=== PATIENT | male | born 1935 | race Caucasian/White ===

== ENCOUNTER → 2016-12-14 | Day surgery (SDC) | payer MEDICARE, OTHER ==
[~2016-12-14] MED LIST: ALDACTONE 25MG25 MG PO; COLCHICINE0.6 M1 PO; COUMADIN 1MG TAB1 MG PO; DULCOLAX5 MG PO; ENULOSE10 GM/15 M PO; FINASTERIDE5 MG PO; FLOMAX 0.4 MG0.4 MG PO; FUROSEMIDE20 MG PO; HYDROXYZINE HCL25 MG PO; ISOSORBIDE MONO30 MG PO; LISINOPRIL5 MG PO; METHOCARBAMOL500 MG PO; METHOCARBAMOL750 MG PO; NEURONTIN 300300 MG PO; NORCO 10-325 T1 EACH PO; PROCEL1 EACH PO; SIMVASTATIN20 MG PO; TYLENOL 500 MG500 MG PO; ZYLOPRIM 100 M100 MG PO; ZYRTEC10 M3 PO
== END | disposition home or self-care (01) ==
LOC: OR 07:03
PROVIDERS: Internal Medicine Gastroenterology
PROC: 0DBL8ZX Excision of Transverse Colon, Via Natural or Artificial Opening Endoscopic, Diagnostic (ICD-10-PCS; 2016-12-14)
PROC: 0DBP8ZZ Excision of Rectum, Via Natural or Artificial Opening Endoscopic (ICD-10-PCS; 2016-12-14)
PROC: 0DBK8ZX Excision of Ascending Colon, Via Natural or Artificial Opening Endoscopic, Diagnostic (ICD-10-PCS; principal; 2016-12-14 13:00)
DX: Z12.11 Encounter for screening for malignant neoplasm of colon (principal); C18.2 Malignant neoplasm of ascending colon; C18.3 Malignant neoplasm of hepatic flexure; D12.8 Benign neoplasm of rectum; K57.30 Diverticulosis of large intestine without perforation or abscess without bleeding; K64.0 First degree hemorrhoids; I11.0 Hypertensive heart disease with heart failure; I50.9 Heart failure, unspecified; I73.9 Peripheral vascular disease, unspecified; J43.9 Emphysema, unspecified; G47.30 Sleep apnea, unspecified; N40.0 Benign prostatic hyperplasia without lower urinary tract symptoms; F41.9 Anxiety disorder, unspecified; Z86.73 Personal history of transient ischemic attack (TIA), and cerebral infarction without residual deficits; Z87.891 Personal history of nicotine dependence; Z82.49 Family history of ischemic heart disease and other diseases of the circulatory system; Z83.3 Family history of diabetes mellitus; Z79.01 Long term (current) use of anticoagulants; Z79.899 Other long term (current) drug therapy; Z90.89 Acquired absence of other organs; Z98.890 Other specified postprocedural states
CPT/HCPCS: 82962; J7030

== ENCOUNTER 2017-01-04 11:32 | Emergency (ER) | payer MEDICARE, OTHER ==
[~2017-01-04 11:32] MED LIST changes: -COLCHICINE0.6 M1 PO; -ENULOSE10 GM/15 M PO; -HYDROXYZINE HCL25 MG PO; -METHOCARBAMOL500 MG PO; -NORCO 10-325 T1 EACH PO; -PROCEL1 EACH PO; -TYLENOL 500 MG500 MG PO; -ZYRTEC10 M3 PO
[2017-02-07] MEDS ORDERED: ISOSORBIDE MONO30 MG PO (09:27)
[2017-03-27] MEDS ORDERED: NORCO 10-325 T1 EACH PO (00:40)
[2017-03-27] MEDS ORDERED: TYLENOL 500 MG500 MG PO (00:42)
[2017-03-27] MEDS ORDERED: PROCEL1 EACH PO (00:44)
[2017-03-27] MEDS ORDERED: ENULOSE10 GM/15 M PO (00:45)
== END 2017-01-04 19:14 | disposition home or self-care (01) ==
LOC: ER1 11:32
DX: S70.02XA Contusion of left hip, initial encounter (principal); W01.0XXA Fall on same level from slipping, tripping and stumbling without subsequent striking against object, initial encounter; Y92.009 Unspecified place in unspecified non-institutional (private) residence as the place of occurrence of the external cause
CPT/HCPCS: 73502; 73564; 73700; 99284

== ENCOUNTER → 2017-02-02 | Outpatient (CLI) | payer MEDICARE, OTHER ==
[~2017-02-02] MED LIST changes: +COLCHICINE0.6 M1 PO; +ENULOSE10 GM/15 M PO; +HYDROXYZINE HCL25 MG PO; +METHOCARBAMOL500 MG PO; +NORCO 10-325 T1 EACH PO; +PROCEL1 EACH PO; +TYLENOL 500 MG500 MG PO; +ZYRTEC10 M3 PO
[2017-02-02 11:28] LABS: HEMOGLOBIN 15.2 gm/dl (14.0-17.5); RED BLOOD COUNT 4.91 M/UL (4.20-5.50)
== END ==
LOC: OPSV2 09:46
PROVIDERS: Anesthesiology
DX: Z01.818 Encounter for other preprocedural examination (principal); Z01.812 Encounter for preprocedural laboratory examination; C18.9 Malignant neoplasm of colon, unspecified; I10 Essential (primary) hypertension; E11.9 Type 2 diabetes mellitus without complications; I25.10 Atherosclerotic heart disease of native coronary artery without angina pectoris; Z95.0 Presence of cardiac pacemaker; Z79.02 Long term (current) use of antithrombotics/antiplatelets
CPT/HCPCS: 36415; 71020; 80048; 85025

== ENCOUNTER 2017-02-08 06:04 | Inpatient (IN) | payer MEDICARE, OTHER ==
[~2017-02-08] VITALS: Ht 182.9 cm; Wt 102.5 kg
[~2017-02-08 06:04] MED LIST changes: -COLCHICINE0.6 M1 PO; -ENULOSE10 GM/15 M PO; -HYDROXYZINE HCL25 MG PO; -METHOCARBAMOL500 MG PO; -NORCO 10-325 T1 EACH PO; -PROCEL1 EACH PO; -TYLENOL 500 MG500 MG PO; -ZYRTEC10 M3 PO
[2017-02-08] MEDS ORDERED: ZYRTEC10 M3 PO (07:32)
[2017-02-09 00:30] LABS: RED BLOOD COUNT 4.6 M/UL (4.20-5.50); WHITE BLOOD COUNT 12.9 K/UL (4.5-11.0)
[2017-02-09 07:02] LABS: HEMOGLOBIN 13.4 gm/dl (14.0-17.5); RED BLOOD COUNT 4.45 M/UL (4.20-5.50); WHITE BLOOD COUNT 11.3 K/UL (4.5-11.0)
[2017-02-10 03:15] LABS: HEMOGLOBIN 12.6 gm/dl (14.0-17.5); RED BLOOD COUNT 4.17 M/UL (4.20-5.50); WHITE BLOOD COUNT 9.3 K/UL (4.5-11.0)
--- NOTE | 2017-02-10 17:00 | NUR ---
Dr. Schultz here, removed Qpain sheath, empty. Redressed KAITY drain dressing. advanced to [facility]. Will start bladder training.
[2017-02-12 05:35] LABS: HEMOGLOBIN 12.6 gm/dl (14.0-17.5); RED BLOOD COUNT 4.23 M/UL (4.20-5.50); WHITE BLOOD COUNT 2.6 K/UL (4.5-11.0)
[2017-02-15 06:05] LABS: HEMOGLOBIN 12.5 gm/dl (14.0-17.5); RED BLOOD COUNT 4.21 M/UL (4.20-5.50)
[2017-03-27] MEDS ORDERED: NORCO 10-325 T1 EACH PO (00:40)
[2017-03-27] MEDS ORDERED: TYLENOL 500 MG500 MG PO (00:42)
[2017-03-27] MEDS ORDERED: PROCEL1 EACH PO (00:44)
[2017-03-27] MEDS ORDERED: ENULOSE10 GM/15 M PO (00:45)
== END 2017-02-16 15:35 | disposition other institution (70) | DRG 330 ==
LOC: ZOBSOF 06:04 → PROG CARE 06:04 → ZOBSOF 06:13 → OR 07:30 → EDSTATUS 07:30 → OR 07:45 → M/S 09:30 → PROG CARE 18:24 → M/S 02-13 14:31
PROVIDERS: Internal Medicine; Physician Assistant; ADMIT Surgery
PROC: 0WH Anatomical Regions, General, Insertion (ICD-10-PCS; principal; 2017-02-08 10:40)
PROC: 0DTF0ZZ Resection of Right Large Intestine, Open Approach (ICD-10-PCS; principal; 2017-02-08 10:40)
PROC: 0DJD4ZZ Inspection of Lower Intestinal Tract, Percutaneous Endoscopic Approach (ICD-10-PCS; principal; 2017-02-08 10:40)
DX: C18.2 Malignant neoplasm of ascending colon (principal); C18.3 Malignant neoplasm of hepatic flexure; I13.0 Hypertensive heart and chronic kidney disease with heart failure and stage 1 through stage 4 chronic kidney disease, or unspecified chronic kidney disease; I50.30 Unspecified diastolic (congestive) heart failure; Z53.31 Laparoscopic surgical procedure converted to open procedure; J44.9 Chronic obstructive pulmonary disease, unspecified; Z87.891 Personal history of nicotine dependence; N18.3 Chronic kidney disease, stage 3 (moderate); I48.0 Paroxysmal atrial fibrillation; Z79.01 Long term (current) use of anticoagulants; Z95.0 Presence of cardiac pacemaker; E78.5 Hyperlipidemia, unspecified; N40.0 Benign prostatic hyperplasia without lower urinary tract symptoms; D69.6 Thrombocytopenia, unspecified
CPT/HCPCS: 36415; 71010; 80048; 82962; 85025; 85027; 85610; 85730; 86850; 86900; 86901; 88341; 88342; 93005; 94640; 94664; 97110; 97530; C1751; J0694; J1200; J1644; J2250; J2270; J2405; J2710; J2795; J3010; J7030; J7040; J7050; J7120

== ENCOUNTER → 2017-03-18 | Outpatient (CLI) | payer MEDICARE, OTHER ==
[~2017-03-18] MED LIST changes: +COLCHICINE0.6 M1 PO; +ENULOSE10 GM/15 M PO; +HYDROXYZINE HCL25 MG PO; +METHOCARBAMOL500 MG PO; +NORCO 10-325 T1 EACH PO; +PROCEL1 EACH PO; +TYLENOL 500 MG500 MG PO; +ZYRTEC10 M3 PO
== END ==
LOC: CT 03-09 10:30 → LAB 09:33 → CT 09:33
DX: C18.2 Malignant neoplasm of ascending colon (principal); R59.0 Localized enlarged lymph nodes; N28.1 Cyst of kidney, acquired; M47.896 Other spondylosis, lumbar region; I70.0 Atherosclerosis of aorta

== ENCOUNTER 2017-06-15 11:32 | Inpatient (IN) | payer MEDICARE, OTHER ==
[~2017-06-15] VITALS: Ht 188 cm; Wt 99.8 kg
[~2017-06-15 11:32] MED LIST changes: -COLCHICINE0.6 M1 PO; -HYDROXYZINE HCL25 MG PO; -METHOCARBAMOL500 MG PO
[2017-06-15 13:46] LABS: HEMOGLOBIN 15.2 gm/dl (14.0-17.5)
[2017-06-15 13:51] LABS: RED BLOOD COUNT 5.26 M/UL (4.20-5.50); WHITE BLOOD COUNT 8.6 K/UL (4.5-11.0)
[2017-06-15] MEDS ORDERED: HYDROXYZINE HCL25 MG PO (20:18)
[2017-06-15] MEDS ORDERED: METHOCARBAMOL500 MG PO (20:19)
[2017-06-15] MEDS ORDERED: METHOCARBAMOL750 MG PO (20:20)
[2017-06-15] MEDS ORDERED: COLCHICINE0.6 M1 PO (20:20)
[2017-06-16 05:18] LABS: HEMOGLOBIN 14.4 gm/dl (14.0-17.5); RED BLOOD COUNT 5.03 M/UL (4.20-5.50); WHITE BLOOD COUNT 8.8 K/UL (4.5-11.0)
[2017-06-17 04:18] LABS: HEMOGLOBIN 14.3 gm/dl (14.0-17.5); RED BLOOD COUNT 4.88 M/UL (4.20-5.50)
[2017-06-17 04:19] LABS: WHITE BLOOD COUNT 6.3 K/UL (4.5-11.0)
[2017-06-18 04:35] LABS: HEMOGLOBIN 14.4 gm/dl (14.0-17.5); RED BLOOD COUNT 5.05 M/UL (4.20-5.50); WHITE BLOOD COUNT 7.1 K/UL (4.5-11.0)
[2017-06-18 04:52] LABS: BUN/CREATININE RATIO 18 (0-10)
== END 2017-06-22 20:35 | disposition expired | DRG 374 ==
LOC: ER1 11:32 → ZEROF 16:03 → MED SURG 4 16:03 → PROG CARE 16:03 → MED SURG 4 06-18 20:34
PROVIDERS: Internal Medicine Gastroenterology; Physician Assistant; ADMIT Internal Medicine
DX: C78.6 Secondary malignant neoplasm of retroperitoneum and peritoneum (principal); K85.90 Acute pancreatitis without necrosis or infection, unspecified; K83.1 Obstruction of bile duct; G93.40 Encephalopathy, unspecified; J18.9 Pneumonia, unspecified organism; R40.20 Unspecified coma; C18.9 Malignant neoplasm of colon, unspecified; N17.9 Acute kidney failure, unspecified; I13.0 Hypertensive heart and chronic kidney disease with heart failure and stage 1 through stage 4 chronic kidney disease, or unspecified chronic kidney disease; C78.89 Secondary malignant neoplasm of other digestive organs; K59.00 Constipation, unspecified; Z95.0 Presence of cardiac pacemaker; I48.91 Unspecified atrial fibrillation; Z83.3 Family history of diabetes mellitus; I73.9 Peripheral vascular disease, unspecified; M10.9 Gout, unspecified; Z79.01 Long term (current) use of anticoagulants; R79.1 Abnormal coagulation profile; K80.80 Other cholelithiasis without obstruction; Z51.5 Encounter for palliative care; L89.151 Pressure ulcer of sacral region, stage 1; Z66 Do not resuscitate; E11.22 Type 2 diabetes mellitus with diabetic chronic kidney disease; I50.9 Heart failure, unspecified; N18.9 Chronic kidney disease, unspecified
CPT/HCPCS: 36415; 71010; 76705; 78226; 80048; 80053; 80076; 80202; 82150; 82550; 82553; 82962; 83690; 84484; 85025; 85027; 85610; 85730; 86900; 86901; 93005; 96374; 99285; A9537; C9113; J1200; J1335; J2270; J2405; J3370; J3430; J7050; J7070